=== PATIENT | female | born 1975 | race Two or more races ===

== ENCOUNTER 2018-04-01 16:50 | Emergency (ER) | payer OTHER ==
[~2018-04-01] VITALS: Ht 160 cm; Wt 77.1 kg
[~2018-04-01 16:50] MED LIST: LEVSIN/SL0.125 MG SL; PREVACID30 MG PO
== END 2018-04-01 20:50 | disposition home or self-care (01) ==
LOC: ER 16:50
DX: J32.8 Other chronic sinusitis (principal); I10 Essential (primary) hypertension; E86.0 Dehydration

== ENCOUNTER 2018-08-27 22:17 | Emergency (ER) | payer OTHER ==
[~2018-08-27] VITALS: Ht 160 cm; Wt 75.7 kg
[2018-08-27] MEDS ORDERED: NORVASC5 MG PO (22:29)
[2018-08-28] MEDS ORDERED: MEDROL8 MG PO (02:05)
[2018-08-28] MEDS ORDERED: BENADRYL25 MG PO (02:05)
== END 2018-08-28 02:22 | disposition home or self-care (01) ==
LOC: ER 22:17
DX: T78.49XA Other allergy, initial encounter (principal); R06.02 Shortness of breath

== ENCOUNTER 2018-10-11 13:59 | Emergency (ER) | payer OTHER ==
[~2018-10-11] VITALS: Ht 160 cm; Wt 75.7 kg
[~2018-10-11 13:59] MED LIST changes: +BENADRYL25 MG PO; +MEDROL8 MG PO; +NORVASC5 MG PO
== END 2018-10-11 18:08 | disposition home or self-care (01) ==
LOC: ER 13:59
DX: J06.9 Acute upper respiratory infection, unspecified (principal); J45.998 Other asthma

== ENCOUNTER → 2024-11-02 | Emergency (ER) | payer OTHER ==
[~2024-11-02] VITALS: Ht 160 cm; Wt 60.8 kg
[~2024-11-02] MED LIST changes: +AZITHROMYCIN500 MG PO; +IPRATROPIUM BROMIDE 0.5 MG/2.5 ML AMPUL.NEB IH ONE; +IPRATROPIUM BROMIDE 0.5 MG/2.5 ML AMPUL.NEB IH SCH; +LEVALBUTER0.63 MG/3 IH; +LEVALBUTEROL HCL 1.25 MG/3 ML SOLUTION IH ONE; +LEVALBUTEROL HCL 1.25 MG/3 ML SOLUTION IH SCH; +MAGNESIUM SULFATE IN WATER 2 GM/50 ML PIGGYBAG IV ONE; +MEDROLPACK PO; +METHYLPREDNISOLONE SOD SUCC 125 MG VIAL IV ONE; +METHYLPREDNISOLONE SOD SUCC 125 MG VIAL ONE; +MONTELUKAST SODIUM 10 MG TABLET PO ONE; +OZEMPIC0.25 MG/02 SUBCUTANEO; +PEPCID AC20 MG PO; +SINGULAIR10 MG PO; +WATER FOR INJ.,BACTERIOSTATIC 30 ML VIAL IJ ONE
[2024-11-02 11:04] LABS: HEMATOCRIT 43.2 % (36.0-45.00); HEMOGLOBIN 14.7 g/dL (12.0-15.00); MEAN CELL VOLUME 91.1 fL (80.00-100.00); MEAN CORPUSCULAR HEMOGLOBIN 31.1 pg (27.00-32.0); MEAN CORPUSCULAR HGB CONC 34.1 g/dl (32.0-36.0); PLATELET COUNT 258 K/uL (150-450); RED BLOOD COUNT 4.74 M/uL (4.00-6.00); RED CELL DISTRIBUTION WIDTH 12.7 % (11.5-14.5)
[2024-11-02 11:30] LABS: ALBUMIN 3.9 gm/dL (3.4-5.0); BILIRUBIN TOTAL 0.65 mg/dL (0.3-1.2); CALCIUM 9.9 mg/dL (8.5-10.1); CREATININE SERUM 0.63 mg/dL (0.55-1.02); GFR 101.29; GLOBULINA 4.4 G/DL (2.4-3.5); POTASSIUM 4.14 mEq/L (3.5-5.1); TOTAL PROTEIN 8.3 gm/dL (6.4-8.2)
[2024-11-02 12:06] LABS: COVID-19 AG NEGATIVE (NEGATIVE); INFLUENZA A AG NEGATIVE (NEGATIVE)
== END | disposition home or self-care (01) ==
LOC: ER 08:43
PROVIDERS: General Practice
DX: J45.909 Unspecified asthma, uncomplicated (principal); J00 Acute nasopharyngitis [common cold]; R53.81 Other malaise; Z20.822 Contact with and (suspected) exposure to COVID-19; E11.9 Type 2 diabetes mellitus without complications